=== PATIENT | male | born 1960 | race African-American/Black ===

== ENCOUNTER 2016-12-23 11:45 | Day surgery (SDC) | payer BC ==
[~2016-12-23] VITALS: Ht 190.5 cm; Wt 134.4 kg
[~2016-12-23 11:45] MED LIST: AMBIEN5 MG PO; APRESOLINE50 MG PO; ASPIRIN81 M2 PO; CATAPRES0.2 MG PO; IMITREX100 MG PO; LANTUS 3 M100 UNITS1 SC; LASIX80 MG PO; LIDOCAINE700 MG TP; LYRICA50 MG PO; NITROGLYCERIN0.4 MG SL; NORVASC10 MG PO; NOVOLOG PE100 UNITS/ SC; OXYCODONE HCL15 MG PO; RENAPLEX PO; SINGULAIR10 MG PO; ZOFRAN4 MG PO; ZYLOPRIM100 MG PO
[2016-12-23] MEDS ORDERED: NEURONTIN100 MG PO (11:46)
[2016-12-23] MEDS ORDERED: APRESOLINE100 MG PO (11:47)
[2016-12-23] MEDS ORDERED: TOUJEO SOL300 UNIT/1 SC (11:49)
[2016-12-23] MEDS ORDERED: NORMODYNE,TRAN200 MG PO (11:49)
[2016-12-23] MEDS ORDERED: PROCARDIA XL30 MG PO (11:50)
[2016-12-23] MEDS ORDERED: MEN'S MULTI-VI1 EACH PO (11:51)
[2016-12-23] MEDS ORDERED: CARVEDILOL25 MG PO (12:29)
[2016-12-23] MEDS ORDERED: AMLODIPINE BESY10 MG PO (12:30)
[2016-12-23 12:39] LABS: POINT-OF-CARE METER ID UU14174212
[2016-12-23 12:44] VITALS: BP 153/100
[2016-12-23 12:45] VITALS: BP 153/100
[2016-12-23 13:04] LABS: HEMATOCRIT 34.6 % (38.0-50.0); MCH 27.5 PG (29.0-34.0); MCHC 34.4 G/DL (30.0-36.0); MCV 80.1 FL (86-99); PLATELET COUNT 203 K/uL (156-360); RBC DIS.WIDTH-CV 13.7 % (11.8-14.6); RBC DIS.WIDTH-SD 39.9 % (39-53); RED BLOOD COUNT 4.32 M/uL (4.00-5.50); WHITE BLOOD COUNT 5.4 K/uL (4.1-10.2)
[2016-12-23 13:46] LABS: ANION GAP 11 MEQ/L (2-14); CHLORIDE 101 MEQ/L (99-109); GFR ESTIMATE (CALCULATED) 12 mL/min/; GLUCOSE 139 mg/dL (70-99); POTASSIUM 3.5 MEQ/L (3.7-5.4); SAMPLE HEMOLYSIS CHECK 0; SAMPLE ICTERIC CHECK 0; SAMPLE LIPEMIA CHECK 0; SODIUM 137 MEQ/L (136-147); UREA NITROGEN (BUN) 42 mg/dL (9-23)
[2016-12-23 15:45] LABS: POINT-OF-CARE METER ID UU13113675
[2016-12-23 16:59] VITALS: BP 138/80
[2016-12-23 17:23] LABS: POINT-OF-CARE METER ID UU14208750
[2016-12-23 19:55] VITALS: BP 174/107
[2016-12-23 21:55] LABS: POINT-OF-CARE METER ID UU14162508
[2016-12-24 00:43] VITALS: BP 168/92
[2016-12-24 04:27] VITALS: BP 135/86
[2016-12-24 06:16] LABS: POINT-OF-CARE METER ID UU14208750
[2016-12-24 07:40] VITALS: BP 140/89; BP 142/84
== END 2016-12-24 09:57 | disposition home or self-care (01) ==
LOC: SDC 11:45 → 2EAST 15:20 → 2SOUTH 15:20 → ENRESERV 15:26 → 2EAST 16:44
PROVIDERS: Surgery
DX: I12.0 Hypertensive chronic kidney disease with stage 5 chronic kidney disease or end stage renal disease (principal); E11.22 Type 2 diabetes mellitus with diabetic chronic kidney disease; N18.6 End stage renal disease; Z99.2 Dependence on renal dialysis; Z87.891 Personal history of nicotine dependence; Z79.4 Long term (current) use of insulin; Z88.0 Allergy status to penicillin
CPT/HCPCS: 80048; 82948; 85027; 93005; 94799; G0378; J1644; J1815; J2250; J2720; J3010; J7040

== ENCOUNTER 2017-09-29 13:13 | Day surgery (SDC) | payer BC, OTHER ==
[~2017-09-29 13:13] MED LIST changes: +AMLODIPINE BESY10 MG PO; +APRESOLINE100 MG PO; +CARVEDILOL25 MG PO; +MEN'S MULTI-VI1 EACH PO; +NEURONTIN100 MG PO; +NORMODYNE,TRAN200 MG PO; +PROCARDIA XL30 MG PO; +TOUJEO SOL300 UNIT/1 SC
== END 2017-09-29 18:10 | disposition home or self-care (01) ==
LOC: CATH 13:13
PROVIDERS: Surgery
DX: T82.590A Other mechanical complication of surgically created arteriovenous fistula, initial encounter (principal); Y83.2 Surgical operation with anastomosis, bypass or graft as the cause of abnormal reaction of the patient, or of later complication, without mention of misadventure at the time of the procedure; I12.0 Hypertensive chronic kidney disease with stage 5 chronic kidney disease or end stage renal disease; E11.22 Type 2 diabetes mellitus with diabetic chronic kidney disease; N18.6 End stage renal disease; Z99.2 Dependence on renal dialysis; Z87.891 Personal history of nicotine dependence; Z88.0 Allergy status to penicillin; Z91.013 Allergy to seafood; Z79.4 Long term (current) use of insulin
CPT/HCPCS: 82948; 87641; C1725; C1769; C1874; C1894; J0360; J1644